=== PATIENT | female | born 1940 | race Caucasian/White ===

== ENCOUNTER 2017-08-27 05:42 | Day surgery (SDC) | payer MEDICARE, OTHER ==
[2017-08-25 15:41] LABS: HEMOGLOBIN 12.3 g/dL (12-16); MCH 32.7 pg (26.0-34.0); MCHC 33.2 g/dL (31.0-37.0); MCV 98.4 fL (80.0-100.0); MEAN PLATELET VOLUME 8.8 fL (7.4-10.4); RBC 3.76 10x6/uL (4.00-5.40); RDW 13.3 % (11.5-14.5); WBC 6.2 10x3/uL (4.8-10.8)
[2017-08-25 16:27] LABS: ANION GAP 14.9 mmol/L (8-16); CALCIUM 8.9 mg/dL (8.5-10.1); CARBON DIOXIDE 27.8 mmol/L (21.0-32.0); CREATININE - SERUM 1.1 mg/dL (0.6-1.3); POTASSIUM - SERUM 3.7 mmol/L (3.5-5.1)
[~2017-08-27] VITALS: Ht 161.3 cm; Wt 60.3 kg
--- NOTE | ~2017-08-27 | OP ---
PATIENT NAME: CINDY QUISPE MEDICAL RECORD: [id number] :38 LOCATION:D.OPS ADMISSION DATE: SURGEON: JOANNA BEARDEN DPM DATE OF OPERATION: 08/27/2017 PREOPERATIVE DIAGNOSES: 1. Right first MPJ arthritis. 2. Right hallux spur, medial aspect. POSTOPERATIVE DIAGNOSES: 1. Right first MPJ arthritis. 2. Right hallux spur, medial aspect. PROCEDURES: 1. Right first MPJ fusion. 2. Right hallux spur removal. ANESTHESIA: General with local infiltrate utilizing lidocaine and Marcaine plain, approximately 30 cc total 1:1 mix. HEMOSTASIS: Right thigh tourniquet at 350 mmHg. PREOPERATIVE DETAILS: The patient was taken to the OR and placed on the operating table in a supine position. This was followed by induction of general anesthesia and infiltration of local anesthetic. The right extremity was then prepped and draped in the usual aseptic technique followed by exsanguination of extremity and inflation of tourniquet. PROCEDURE NUMBER 1: Right first MPJ fusion. A 15-blade was used to create a 4-cm linear incision over the dorsal aspect of the right first MPJ. The incision was deepened down through subcutaneous tissue to the first MPJ capsule. A linear capsulotomy was performed and the head of the first metatarsal was then dissected and delivered as well as the base of proximal phalanx. At this time, utilizing a cup and cone reamers, the cartilaginous surface was removed. Temporary fixation was placed. Excellent alignment was noted. A 5-hole plate with 1 hole crossing the fusion site was then placed with excellent rigid internal fixation as well as alignment of the hallux. The wound was flushed. The capsule was repaired with 2-0 Vicryl, the subcutaneous tissue with 4-0 Rapide, and the skin was closed with 4-0 Rapide in a subcuticular technique followed by Dermabond. PROCEDURE NUMBER 2: Spur removal, right hallux medial aspect. A 15 blade was used to create a 1-cm incision overlying the medial aspect of the right hallux. The incision was deepened down to subcutaneous tissue. The spur was then freed from the surrounding soft tissue. A rasp was then used to reduce the spur. Good clinical reduction of the spurring was noted. The wound was flushed and the skin was closed with 4-0 Rapide in a simple interrupted technique followed by Dermabond. Adaptic, 4 x 4 and Conform were used to dress the wounds followed by Júnior wrap. Tourniquet was deflated. POSTOPERATIVE DETAILS: The patient tolerated the procedure well and left the OR with vital signs stable and vascular status at preop levels. The patient was transported to recovery per anesthesia in stable condition. TRANSINT:[id number] Voice Confirmation ID: [id number] DOCUMENT ID: [id number] OPERATIVE REPORT [id number] CINDY QUISPE MCKAY DPM at 0905 CC: [id number] DICTATION DATE: 08/27/17 1006 [employer]: 08/27/17 1059 [facility] [place] 08/27/17 [id number] [place] [address]
[~2017-08-27 05:42] MED LIST: BACTRIM DS TABL1 TAB PO; CLARITIN 10 MG10 MG PO; GLUCOSAMINE & C1 CAP PO; HYDROCHLOROTH12.5 M1 PO; LEVOTHYROXINE75 MCG PO; NEXIUM40 MG PO; PRAVACHOL40 MG PO; VALTREX500 MG PO; ZEBETA5 MG PO
[2017-08-27] MEDS ORDERED: ADVAIR 250/501 DISK INH (07:09)
[2017-08-27 07:21] VITALS: BP 137/68; Ht 161.3 cm; Wt 60.3 kg
== END 2017-08-27 12:35 | disposition home or self-care (01) ==
LOC: D.OPS 05:42 → D.PAN 07:30 → D.OPS 08:00
PROVIDERS: Anesthesiology
DX: M13.871 Other specified arthritis, right ankle and foot (principal); M77.51 Other enthesopathy of right foot and ankle; Z01.812 Encounter for preprocedural laboratory examination

== ENCOUNTER 2017-08-29 08:41 | Emergency (ER) | payer MEDICARE, OTHER ==
[2017-08-27 07:21] VITALS: BMI 23.2
[~2017-08-29 08:41] MED LIST changes: +ADVAIR 250/501 DISK INH
[2017-08-29 09:07] LABS: BASOPHILS 0.1 % (0-2); EOSINOPHILS 0.2 % (0-7); HEMATOCRIT 34.6 % (36.0-48.0); HEMOGLOBIN 11.4 g/dL (12-16); IMMATURE GRANULOCYTES 0.3 % (0-5); LYMPHOCYTES 10.1 % (15-50); MCH 32.5 pg (26.0-34.0); MCHC 32.9 g/dL (31.0-37.0); MCV 98.6 fL (80.0-100.0); MEAN PLATELET VOLUME 9.3 fL (7.4-10.4); MONOCYTES 10.1 % (2-11); NEUTROPHILS 79.2 % (40-80); PLATELET COUNT 207 10x3/uL (130-400); RBC 3.51 10x6/uL (4.00-5.40); RDW 13.5 % (11.5-14.5); WBC 10.9 10x3/uL (4.8-10.8)
[2017-08-29 09:27] LABS: APPEARANCE CLEAR (CLEAR); BILIRUBIN NEGATIVE (NEGATIVE); COLOR STRAW (YELLOW); GLUCOSE NEGATIVE (NEGATIVE); KETONE SMALL mg/dL (NEGATIVE); NITRITE NEGATIVE (NEGATIVE); PROTEIN NEGATIVE (NEGATIVE); SPECIFIC GRAVITY 1.005 (1.005-1.020); UROBILINOGEN NORMAL (NORMAL)
[2017-08-29 09:31] LABS: ALBUMIN 3.4 g/dL (3.4-5.0); ANION GAP 10.8 mmol/L (8-16); BILIRUBIN - TOTAL 1.11 mg/dL (0.2-1.3); CALCIUM 9.4 mg/dL (8.5-10.1); CARBON DIOXIDE 28.8 mmol/L (21.0-32.0); POTASSIUM - SERUM 3.6 mmol/L (3.5-5.1); PROTEIN - SERUM 7.7 g/dL (6.4-8.2)
== END 2017-08-29 15:12 | disposition home or self-care (01) ==
LOC: D.ER 08:41
PROVIDERS: Emergency Medicine
DX: R11.10 Vomiting, unspecified (principal); K59.00 Constipation, unspecified; I10 Essential (primary) hypertension; E03.9 Hypothyroidism, unspecified